=== PATIENT | male | born 1995 | race Two or more races ===

== ENCOUNTER 2016-09-27 23:20 | Emergency (ER) | payer SELFPAY ==
--- NOTE | ~2016-09-27 | CT2 ---
[facility] A Service of [facility] RADIOLOGY TEXT RESULTS PATIENT: MURRAY BLACKBURN LOCATION: [facility] : [birth year] UNIT #: [id number] AGE: [address]: Jean Martinez MD SEX: M ORDER DR: [id number] [facility]. [place], [place] [address] [id number] MR#: [id number] Acc #: [id number] NAME: MURRAY BLACKBURN : 1995 SEX: M STUDY DATE/TIME: 09/28/2016 1:19 UNIT: [facility] ROOM: STUDY DESCRIPTION: CT Abd and Pelv W Cont Attending Physician: Jean Martinez M.D. Ordering Physician: Dieudonne Araiza M.D. Primary Care Physician: No Primary Care Physician MEDICAL IMAGING REPORT This report is preliminary unless electronic signature is present EXAM CT abdomen and pelvis with contrast. INDICATION Right upper quadrant pain for 3 days. The patient was given 100 mL of Isovue-370 and axial 5 mm images were obtained through the abdomen and pelvis. This CT exam was performed with one or more of the following radiation dose reduction techniques: automatic exposure control, adjustment of mA and/or kV according to patient size, and iterative reconstruction. COMPARISON STUDIES There is no comparison. FINDINGS The lung bases are clear. The liver is normal in size. There seems to be periportal edema visible and there is fluid around the gallbladder. The gallbladder wall is not thickened and there is no stones visible. The spleen, pancreas, adrenal glands, and kidneys are normal. The aorta is normal in size and there is no adenopathy. The bowel is normal. The bladder and prostate gland are normal. The bones are unremarkable. IMPRESSION Periportal edema is visible around the portal structures in the liver and there is some fluid surrounding the gallbladder. Gallbladder wall is not thickened and I cannot identify any stones on this CT scan. Findings could represent hepatitis. I think cholecystitis is less likely given the thin gallbladder wall and clinical correlation is recommended. Otherwise study is normal. [facility] A Service of [facility] RADIOLOGY TEXT RESULTS PATIENT: MURRAY BLACKBURN LOCATION: [facility] : [birth year] UNIT #: [id number] AGE: [address]: Jean Martinez MD SEX: M ORDER DR: Dictated by... Isiah Hedrick M.D. THIS IS AN ELECTRONICALLY VERIFIED REPORT Isiah Hedrick M.D. at 09/28/2016 1:23 PM FRANCIS/lucien TD: 09/28/2016 09:14 JOB #: [id number] MEDICAL IMAGING REPORT Page 1 of 1 COPY
[2016-09-28 00:14] LABS: BASOPHIL# 0.1 X10e3 (0-0.3); BASOPHIL% 0.9 % (0-2.5); EOSINOPHIL# 0.4 X10e3 (0-0.7); HEMATOCRIT 40.8 % (38.0-50.0); HEMOGLOBIN 13.4 gm/dL (13.0-16.0); LYMPHOCYTE# 3.3 X10e3 (1.0-3.5); LYMPHOCYTE% 43.3 % (17.0-45.0); MEAN CELL VOLUME 87.6 FL (83-96); MEAN CORPUSCULAR HEMOGLOBIN 28.8 PG (28-34); MEAN CORPUSCULAR HGB CONC 32.9 g/dL (30-36); MEAN PLATELET VOLUME 8.3 FL (6.5-11.5); MONOCYTE# 0.5 X10e3 (0-1.0); MONOCYTE% 7.1 % (3.0-12.0); NEUTROPHIL# 3.4 X10e3 (1.5-7.1); NEUTROPHIL% 43.7 % (40-75); PLATELET COUNT 179 X10e3 (140-420); RED BLOOD COUNT 4.66 X10e (3.90-5.60); WHITE BLOOD COUNT 7.7 X10e3 (4.0-10.5)
[2016-09-28 00:16] LABS: DIFF IND NO
[2016-09-28 00:36] LABS: ALBUMIN SERUM 4.2 g/dL (3.5-5.0); BILIRUBIN, DIRECT 0.2 mg/dL (0.0-0.2); BILIRUBIN,INDIRECT 0.8 mg/dL (0.0-0.9); BUN/CREATININE RATIO 12.5; CREATININE SERUM 0.8 mg/dL (0.6-1.4); GLOM FILT RATE Estimated 128.6 mL/min (>60); POTASSIUM 3.5 mmol/L (3.5-5.1); PROTEIN TOTAL SERUM 6.9 g/dL (6.0-8.3)
[2016-09-28 00:52] LABS: URINE SOURCE CLEAN CATCH
[2016-09-28 00:56] LABS: URINE APPEARANCE CLEAR; URINE BILIRUBIN NEG (NEG); URINE BLOOD NEG (NEG); URINE COLOR YELLOW; URINE GLUCOSE NEG (NEG); URINE KETONE NEG (NEG); URINE LEUKOCYTE ESTERASE NEG (NEG); URINE NITRATE NEG (NEG); URINE PH 6.5 (5-8); URINE PROTEIN NEG (NEG); URINE SPECIFIC GRAVITY 1.021 (1.003-1.035)
[2016-09-28 00:59] LABS: CULTURE INDICATED? NO
== END 2016-09-28 03:10 | disposition home or self-care (01) ==
LOC: CED 23:20
PROVIDERS: Emergency Medicine
DX: R10.11 Right upper quadrant pain (principal); F17.200 Nicotine dependence, unspecified, uncomplicated
CPT/HCPCS: 36415; 74177; 80048; 80076; 81003; 83690; 85025; 96361; 96374; 99284; J2405; Q9967